=== PATIENT | male | born 1995 | race Caucasian/White ===

== ENCOUNTER 2017-02-26 11:43 | Emergency (ER) | payer OTHER ==
[~2017-02-26] VITALS: Ht 172.7 cm; Wt 86.2 kg
[~2017-02-26 11:43] MED LIST: HEATING PAD1 EACH TOP; IBUPROFEN800 M1 PO; MONTELUKAST SOD10 M1 PO; PERCOCET 5-3251 EACH PO; VICODIN 5-3001 EACH PO
[2017-02-26 11:50] VITALS: BP 123/83
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
== END 2017-02-26 12:52 ==
LOC: ERH 11:43
DX: Z48.03 Encounter for change or removal of drains (principal)